=== PATIENT | female | born 1965 | race Caucasian/White ===

== ENCOUNTER 2016-06-21 10:33 | Emergency (ER) | payer BC ==
[2016-06-21] MEDS ORDERED: TETANUS/DIPHTHERIA/PERTUSSIS 0.5 ML SYRINGE IM ONE ×2 (10:47→11:08)
[2016-06-21] MEDS ORDERED: IBUPROFEN 800 MG TABLET PO STA (11:31)
[2016-06-21] MEDS ORDERED: IBUPROFEN 800 MG TABLET PO ONE (11:31)
== END 2016-06-21 11:34 | disposition home or self-care (01) ==
DX: L03.114 Cellulitis of left upper limb (principal); S60.872A Other superficial bite of left wrist, initial encounter; W55.01XA Bitten by cat, initial encounter
CPT/HCPCS: 87070; 87077; 87181; 87205; 99283; A9270

== ENCOUNTER 2016-08-22 06:32 | Emergency (ER) | payer BC ==
[2016-08-22 07:06] VITALS: BP 163/98
--- NOTE | 2016-08-22 07:12 | ED Physician Documentation ---
PD HPI SKIN - Stated complaint Stated Complaint: ALLERGY REACTION - Chief complaint Chief Complaint: Allergic Rx - History obtained from History obtained from: Patient - History of Present Illness Timing - onset: Today Timing - duration: Hours Timing - details: Abrupt onset Location: Face (she had applied a new facial salve last night and awoke with markedly red and swollen face this morning. Burning feeling. Denies generalized rash.) Quality / character: Painful, Burning, Discolored (very red), Swelling Improved by: No: Benadryl Associated symptoms: Facial swelling. 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 08/22/16 - Allergies Allergies/Adverse Reactions: Allergies Allergy/AdvReac Type Severity Reaction Status Date / Time No Known Drug Allergies Allergy Verified 08/22/16 06:41 - Social History Does the pt smoke?: No Smoking Status: Never smoker Does the pt drink ETOH?: Yes Does the pt have substance abuse?: No - Immunizations Immunizations are current?: Yes Immunizations: TDAP current <10years - POLST Patient has POLST: No PD ED PE NORMAL - Vitals Vital signs reviewed: Yes - General General: Alert and oriented X 3, Well developed/nourished - HEENT HEENT: Other (face with marked redness and swelling diffusely in areas where salve had been applied. Neck and chest okay. No intraoral swelling. Normal voice and breathing. ) - Neck Neck: Supple, no meningeal sign, No adenopathy - Cardiac Cardiac: RRR, No murmur - Respiratory Respiratory: Clear bilaterally - Derm Derm: Warm and dry Results - Vitals Vitals: Vital Signs - 24 hr 08/22/16 08/22/16 06:38 07:05 Temperature 36.6 C Heart Rate 92 82 Respiratory 16 Rate Blood Pressure 171/108 H 163/98 H O2 Saturation 100 99 Oxygen O2 Source Room air Departure - Departure Disposition: 01 Home, Self Care Clinical Impression: Contact dermatitis Qualifiers: Contact dermatitis type: allergic Contact dermatitis trigger: drugs in contact with skin Qualified Code(s): L23.3 - Allergic contact dermatitis due to drugs in contact with skin Condition: Stable Record reviewed to determine appropriate education?: Yes Instructions: ED Dermatitis Contact Prescriptions: Dexamethasone [Decadron] 4 mg PO DAILY #5 tablet Lidocaine 1 applic TP QID PRN #15 cream..g. PRN Reason: Pain Comments: Benadryl every 6 hours for itching/burning as needed. Cool towels to the face periodically. Topical lidocaine can help with the burning. Tylenol or Ibuprofen for the pain. Decadron steroid daily for a few days until fully improved. Recheck if not improved over the next 1-2 days. Discharge Date/Time: 08/22/16 07:54
[2016-08-22] MEDS ORDERED: DEXAMETHASONE 10 MG/ML VIAL ONE (07:34)
[2016-08-22] MEDS ORDERED: CHERRY SYRUP 10 ML UDC PO ONE (07:34)
[2016-08-22] MEDS ORDERED: CETIRIZINE 10 MG TABLET ONE (07:34)
[2016-08-22] MEDS ORDERED: LIDOCAINE JELLY 2% 5 ML TUBE TOP ONE (07:35)
[2016-08-22] MEDS ORDERED: diphenhydrAMINE 25 MG CAPSULE PO ONE (07:35)
[2016-08-22] MEDS: LIDOCAINE JELLY 2% 5 ML TUBE TOP STA (07:39)
[2016-08-22] MEDS: CETIRIZINE 10 MG TABLET PO STA (07:39)
[2016-08-22] MEDS: DEXAMETHASONE 10 MG/ML VIAL PO STA (07:39)
[2016-08-22] MEDS: diphenhydrAMINE 25 MG CAPSULE PO STA (07:39)
[2016-08-22] MEDS ORDERED: ACETAMINOPHEN 500 MG TABLET PO ONE ×2 (07:49→07:52)
[2016-08-22] MEDS: ACETAMINOPHEN 500 MG TABLET PO STA (07:51)
== END 2016-08-22 07:54 | disposition home or self-care (01) ==
LOC: ED 06:32
DX: L23.3 Allergic contact dermatitis due to drugs in contact with skin (principal)
CPT/HCPCS: 99283

== ENCOUNTER 2016-08-28 06:23 | Emergency (ER) | payer BC ==
[2016-08-28 06:30] VITALS: BP 168/79
--- NOTE | 2016-08-28 06:51 | ED Physician Documentation ---
PD HPI SKIN - Stated complaint Stated Complaint: ALLERGIC REACTION - Chief complaint Chief Complaint: Wound - History obtained from History obtained from: Patient - History of Present Illness Timing - onset: How many days ago (3) Timing - duration: Days (3) Timing - details: Gradual onset, Still present Location: Face Quality / character: Painful, Discolored, Crusted, Swelling, Draining Improved by: Oral steroids Associated symptoms: Myalgias, Facial swelling. No: Fever, Dyspnea Contributing factors: Exposed to medication, Exposed to soap / lotion, Recent illness Similar symptoms before: Diagnosis (allergic reaction) Recently seen: Emergency Dept (Seen here 6 days ago with facial swelling) - Additional information Additional information: 51 y/o female with facial swelling that improved with decadron and appeared to be related to a facial filipe that she used once. She reports massive facial swelling and dyspnea and she came to the ED and she was improved on decadron until about 2 days ago when she began to have specific swelling and redness of the chin consistent with an infection. She has a lot of itching and pressure and she just wants to get it cut open. She has been on lisinopril for a long time and she was on HCTZ with it and she cut out the HCTZ 3 days ago. Review of Systems Constitutional: reports: Fatigue. 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 - Present Medications Home Medications: Ambulatory Orders Medication Instructions Recorded Confirmed Clindamycin [Cleocin] 300 mg PO Q6H #28 capsule 08/28/16 Lisinopril 20 mg PO DAILY 08/28/16 08/28/16 Sulfamethoxazole/Trimethoprim 1 each PO BID #14 tablet 08/28/16 [Sulfamethoxazole-Tmp Ds Tablet] - Allergies Allergies/Adverse Reactions: Allergies Allergy/AdvReac Type Severity Reaction Status Date / Time No Known Drug Allergies Allergy Verified 08/28/16 06:30 - Social History Does the pt smoke?: No Smoking Status: Never smoker Does the pt drink ETOH?: Yes Does the pt have substance abuse?: No - Immunizations Immunizations are current?: Yes Immunizations: TDAP current <10years - POLST Patient has POLST: No PD ED PE NORMAL - Vitals Vital signs reviewed: Yes (hypertensive and tachycardic) - General General: Alert and oriented X 3, Well developed/nourished, Other (The patient appears uncomfortable and preferrs to keep the lower portion of her face covered. ) - HEENT HEENT: Atraumatic, PERRL, EOMI, Other (There is marked swelling of the chin and dense erythema consistent with infection. There lower lip on the left is swollen more consistent with angio edema. The tongue is not swollen and there is no airway compromise. There is no flutuance to the area. There are several superficail blisters over the most swollen area and nothing is expressed from this. ) - Neck Neck: Supple, no meningeal sign, No bony TTP - Cardiac Cardiac: RRR, No murmur - Respiratory Respiratory: No respiratory distress - Derm Derm: Other (There are the findings on the chin most consistent with a cellulitis and developing abscess and with something that appears more like angioedema. ) - Extremities Extremities: No deformity, No edema - Neuro Neuro: No motor deficit, No sensory deficit - Psych Psych: Normal mood, Normal affect Results - Vitals Vitals: Vital Signs - 24 hr 08/28/16 06:29 Temperature 36.1 C L Heart Rate 103 H Respiratory 18 Rate Blood Pressure 168/79 H O2 Saturation 98 Oxygen O2 Source Room air PD MEDICAL DECISION MAKING - ED course Complexity details: reviewed old records, reviewed results, re-evaluated patient , considered differential, d/w patient ED course: 51 y/o female with swelling of the chin that appears consistent with a developing abscess is given IM rocephin and we will put her on septra and clinda. We did give her a dose of decadron as well and I have recommended she stop the lisinopril and follow up with her primary for a new agent as I am concerned with the appearance of the swelling being consistent with angio edema. Departure - Departure Disposition: Home, Self Care Clinical Impression: Cellulitis Qualifiers: Site of cellulitis: face Qualified Code(s): L03.211 - Cellulitis of face Angio-edema Qualifiers: Encounter type: initial encounter Qualified Code(s): T78.3XXA - Angioneurotic edema, initial encounter Condition: Stable Instructions: ED Staph Infec Abx Tx Only, ED Cellulitis Facial, ED Angioedema Follow-Up: Your, doctor [Other] Prescriptions: Clindamycin [Cleocin] 300 mg PO Q6H #28 capsule Sulfamethoxazole/Trimethoprim [Sulfamethoxazole-Tmp Ds Tablet] 1 each PO BID # 14 tablet Comments: Today I am concerned that the swelling in the lip appears to be angio edema. The lisinopril can cause this and is usually dramatic like this. Stop taking the lisinopril and follow up with Dr. Fang for an alternative agent. Forms: Activity restrictions
[2016-08-28] MEDS ORDERED: cefTRIAXone 1 GM VIAL ONE (06:52)
[2016-08-28] MEDS ORDERED: DEXAMETHASONE 10 MG/ML VIAL ONE (06:52)
[2016-08-28] MEDS ORDERED: LIDOCAINE 2% 10 ML MDV ONE (06:53)
[2016-08-28] MEDS ORDERED: CHERRY SYRUP 10 ML UDC PO ONE (06:53)
[2016-08-28] MEDS: cefTRIAXone 1 GM VIAL IM STA (07:01)
[2016-08-28] MEDS: DEXAMETHASONE 10 MG/ML VIAL PO STA (07:01)
== END 2016-08-28 07:12 | disposition home or self-care (01) ==
LOC: ED 06:23
DX: L03.211 Cellulitis of face (principal); T78.3XXA Angioneurotic edema, initial encounter; I10 Essential (primary) hypertension
CPT/HCPCS: 96372; 99283; 99284

== ENCOUNTER 2017-02-14 18:47 | Outpatient (CLI) | payer BC | END 2017-02-14 18:48 | disposition critical access hospital (66) | LOC: EMS 18:47 | PROVIDERS: ATTEND Surgery | DX: R42 Dizziness and giddiness (principal) | CPT/HCPCS: A0425; A0429 ==

== ENCOUNTER 2017-02-14 18:56 | Emergency (ER) | payer BC ==
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
[2017-02-14] MEDS ORDERED: MAG HYDROX/AL HYDROX/SIMETH 30 ML UDC PO STA (20:41)
[2017-02-14] MEDS ORDERED: FAMOTIDINE 20 MG TABLET PO STA (20:41)
[2017-02-14] MEDS ORDERED: MAG HYDROX/AL HYDROX/SIMETH 30 ML UDC ONE (20:51)
[2017-02-14] MEDS ORDERED: FAMOTIDINE 20 MG TABLET ONE (20:51)
[2017-02-14 21:01] VITALS: BP 158/91
== END 2017-02-14 20:52 | disposition home or self-care (01) ==
LOC: EDUNIT# → ED 18:56
DX: F10.920 Alcohol use, unspecified with intoxication, uncomplicated (principal); Z04.1 Encounter for examination and observation following transport accident; I10 Essential (primary) hypertension
CPT/HCPCS: 36415; 99283; A9270